=== PATIENT | male | born 1965 | race Caucasian/White ===

== ENCOUNTER → 2017-08-25 06:58 | Emergency (ER) | payer SELFPAY ==
[2017-08-25 07:08] VITALS: BP 104/71
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
== END | disposition home or self-care (01) ==
LOC: ED 06:58
DX: T23.101A Burn of first degree of right hand, unspecified site, initial encounter (principal); X08.8XXA Exposure to other specified smoke, fire and flames, initial encounter; Y93.9 Activity, unspecified; Y92.9 Unspecified place or not applicable
CPT/HCPCS: 99281